=== PATIENT | female | born 1960 | race Caucasian/White ===

== ENCOUNTER 2021-07-12 10:57 | Day surgery (SDC) | payer MEDICAID ==
[~2021-07-12] VITALS: Ht 157.5 cm; Wt 91.7 kg
[2021-07-12] MEDS ORDERED: LISI40TA13 PO (11:36)
[2021-07-12] MEDS ORDERED: ATOR40TA PO (11:36)
[2021-07-12] MEDS ORDERED: IBUP-864 PO (11:36)
[2021-07-12] MEDS ORDERED: METF-436 PO (11:36)
[2021-07-12] MEDS ORDERED: ASPI-611 PO (11:36)
[2021-07-12 11:49] VITALS: BP 132/89
[2021-07-12] MEDS ORDERED: LIDOcaine 1%/PF 5ML 10 MG/ML VIAL SQ ONE (12:40)
[2021-07-12 13:15] VITALS: BP 128/78
[2021-07-12 13:30] VITALS: BP 129/54
== END 2021-07-12 14:12 | disposition home or self-care (01) ==
LOC: SSTAY O 10:57
PROVIDERS: ATTEND Radiology Vascular & Interventional Radiology
DX: K11.8 Other diseases of salivary glands (principal); D11.0 Benign neoplasm of parotid gland; Z88.0 Allergy status to penicillin; Z79.82 Long term (current) use of aspirin; Z79.899 Other long term (current) drug therapy; Z79.84 Long term (current) use of oral hypoglycemic drugs; F17.210 Nicotine dependence, cigarettes, uncomplicated
CPT/HCPCS: 20206; 42400; 76942

== ENCOUNTER 2021-10-16 05:57 | Day surgery (SDC) | payer MEDICAID ==
[2021-10-15 13:32] LABS: BASOPHILS # (AUTO) 0.1 X10'3 (0-0.2); BASOPHILS % (AUTO) 0.9 % (0-1); EOSINOPHILS # (AUTO) 0.3 X10'3 (0-0.9); EOSINOPHILS % (AUTO) 2.7 % (0-6); HEMATOCRIT 45.4 % (35.0-45.0); HEMOGLOBIN 15.1 g/dl (12.0-16.0); LYMPHOCYTES # (AUTO) 2.7 X10'3 (1.1-4.8); LYMPHOCYTES % (AUTO) 23.9 % (21-51); MEAN CORPUSCULAR HEMOGLOBIN 31.4 PG (27.0-31.0); MEAN CORPUSCULAR HGB CONC 33.3 g/dL (33.0-36.5); MEAN CORPUSCULAR VOLUME 94.3 FL (78-98); MEAN PLATELET VOLUME 9.8 FL (7.4-10.4); MONOCYTES # (AUTO) 0.8 X10'3 (0-0.9); MONOCYTES % (AUTO) 6.8 % (2-12); NEUTROPHILS # (AUTO) 7.5 X10'3 (1.8-7.7); NEUTROPHILS % (AUTO) 65.7 % (42-75); PLATELET COUNT 268 X10'3 (140-440); RED BLOOD COUNT 4.82 X10'6 (4.20-5.60); RED CELL DISTRIBUTION WIDTH 13.8 % (11.5-14.5); WHITE BLOOD COUNT 11.4 X10'3 (4.5-11.0)
[2021-10-15 13:36] LABS: ALANINE AMINOTRANSFERASE 74 U/L (12-78); ALBUMIN/GLOBULIN RATIO 1.1 (1.1-1.5); ALKALINE PHOSPHATASE 87 IU/L (46-116); ANION GAP 12 (8-16); ASPARTATE AMINO TRANSFERASE 40 U/L (10-37); BILIRUBIN,TOTAL 0.4 MG/DL (0.1-1.0); BLOOD UREA NITROGEN 9 MG/DL (7-18); BUN/CREATININE RATIO 9.9 (6.6-38.0); CALCIUM 9.7 MG/DL (8.5-10.1); CHLORIDE 104 MMOL/L (99-107); CREATININE 0.91 MG/DL (0.40-0.90); GLUCOSE 149 MG/DL (70-104); POTASSIUM 3.5 MMOL/L (3.5-5.1); SODIUM 142 MMOL/L (135-145); TOTAL CARBON DIOXIDE 26.3 MMOL/L (24-32); TOTAL PROTEIN 7.8 G/DL (6.4-8.2); eGFR 63 ML/MIN
[2021-10-15 13:41] LABS: APTT 25 SECONDS (22-32)
[2021-10-16] VITALS (13 sets, daily range): BP systolic 100–127; BP diastolic 60–74
[~2021-10-16] VITALS: Ht 157.5 cm; Wt 92.7 kg
[~2021-10-16 05:57] MED LIST: ASPI-611 PO; ATOR40TA PO; IBUP-864 PO; LISI40TA13 PO; METF-436 PO
[2021-10-16] MEDS ORDERED: nitroGLYCERIN 0.4mg SUBLingual tab SL PRN ×2 (06:10→09:55)
[2021-10-16] MEDS ORDERED: normal saline 1,000 ML IV SCH (06:15)
[2021-10-16] MEDS ORDERED: diphenhydrAMINE 25mg capsule PO PRN (06:15)
[2021-10-16] MEDS ORDERED: LORazepam 0.5 MG tablet PO PRN (06:15)
[2021-10-16] MEDS ORDERED: BACL10TA2 PO (06:27)
[2021-10-16] MEDS ORDERED: LORA10TA7 PO (06:27)
[2021-10-16] MEDS ORDERED: LISI5TAB22 PO (06:27)
[2021-10-16] MEDS ORDERED: ATOR20TA66 PO (06:27)
[2021-10-16] MEDS ORDERED: nitroGLYCERIN-Tridil 50MG/D5W 0 ML IV ONE (07:44)
[2021-10-16] MEDS ORDERED: midazolam 1 mg/ML 2ml injection ONE ×2 (07:44→09:01)
[2021-10-16] MEDS ORDERED: iohexol 350MG/ML 100ml bottle IV ONE (07:44)
[2021-10-16] MEDS ORDERED: LIDOcaine 1% 30ml preserv. free vial ONE (07:44)
[2021-10-16] MEDS ORDERED: fentaNYL/PF 50MCG/1 ML 2ML syringe ONE (07:44)
[2021-10-16] MEDS ORDERED: heparin 1,000 UNITS/NS 500ml 500 ML ONE (07:50)
--- NOTE | 2021-10-16 08:40 | NUR ---
Pt to clinical lab specialist, report given to Vitor VALENTINE.
[2021-10-16] MEDS ORDERED: proCHLORperazine 10 MG/2 ml inj ONE (08:49)
[2021-10-16] MEDS ORDERED: HYDROmorphone 1 mg/ml syringe ONE (08:49)
--- NOTE | 2021-10-16 09:40 | NUR ---
Received pt from manager cardiac cath. Pt drowsy, but able to follow commands. Right groin site dressing CD&I, no bleeding bruising or hematoma.
[2021-10-16] MEDS ORDERED: normal saline 1000ml 1,000 ML IV SCH (09:55)
[2021-10-16] MEDS ORDERED: ondansetron/PF 4mg/2ml inj IV PRN (09:55)
[2021-10-16] MEDS ORDERED: HYDROcodone/acetaminophen 10/325mg tab PO PRN (09:55)
[2021-10-16] MEDS ORDERED: OXAZEpam 15mg capsule PO PRN (09:55)
[2021-10-16] MEDS ORDERED: HYDROcodone/acetaminophen 5mg/325mg tablet PO PRN (09:55)
--- NOTE | 2021-10-16 13:30 | NUR ---
Pt eating sandwich and drinking water, without problems. Right groin site remains stable. Pt complains of back pain, norco 10mg given. VSS.
--- NOTE | 2021-10-16 14:00 | NUR ---
Pt resting quietly. VSS, right groin site remains stable.
== END 2021-10-16 15:00 | disposition home or self-care (01) ==
LOC: SSTAY O 05:57
PROVIDERS: ATTEND Internal Medicine Cardiovascular Disease
DX: R94.39 Abnormal result of other cardiovascular function study (principal); I25.10 Atherosclerotic heart disease of native coronary artery without angina pectoris; E11.40 Type 2 diabetes mellitus with diabetic neuropathy, unspecified; I10 Essential (primary) hypertension; J44.9 Chronic obstructive pulmonary disease, unspecified; Z79.01 Long term (current) use of anticoagulants; Z79.899 Other long term (current) drug therapy; Z88.0 Allergy status to penicillin; Z98.890 Other specified postprocedural states; E78.5 Hyperlipidemia, unspecified
CPT/HCPCS: 36415; 71046; 80053; 82948; 85025; 85610; 85730; 93005; 93458; 99152; C1760; C1769; J0780; J1170; J1644; J2250; J3010; J3490; J7030; Q0163; Q9967; 99153; A4620; A6258

== ENCOUNTER 2021-10-22 14:57 | Outpatient (CLI) | payer MEDICAID ==
[~2021-10-22 14:57] MED LIST changes: +ATOR20TA66 PO; -ATOR40TA PO; +BACL10TA2 PO; -LISI40TA13 PO; +LISI5TAB22 PO; +LORA10TA7 PO
[2021-10-22] MEDS ORDERED: APIX5TAB3 PO (17:05)
== END 2021-10-22 23:59 | disposition home or self-care (01) ==
LOC: VAS 14:57
PROVIDERS: ATTEND Internal Medicine Cardiovascular Disease
DX: I82.622 Acute embolism and thrombosis of deep veins of left upper extremity (principal); R06.02 Shortness of breath
CPT/HCPCS: 93971

== ENCOUNTER 2021-10-22 15:46 | Emergency (ER) | payer MEDICAID ==
[~2021-10-22] VITALS: Ht 157.5 cm; Wt 90.9 kg
[2021-10-22] MEDS: HYDROcodone/acetaminophen 5mg/325mg tablet PO ONE (16:31)
[2021-10-22] MEDS: ondansetron 4mg rapidly disintigrating tab PO ONE (16:32)
[2021-10-22] MEDS ORDERED: APIX5TAB3 PO (17:05)
[2021-10-22] MEDS: apixaban 5mg tablet PO SCH (17:26)
[2021-10-22 17:45] VITALS: BP 138/110
== END 2021-10-22 18:25 | disposition home or self-care (01) ==
LOC: ER 15:47
DX: I82.622 Acute embolism and thrombosis of deep veins of left upper extremity (principal); F17.200 Nicotine dependence, unspecified, uncomplicated; Z88.0 Allergy status to penicillin; Z79.899 Other long term (current) drug therapy; Z79.82 Long term (current) use of aspirin
CPT/HCPCS: 99284